=== PATIENT | male | born 1950 | race Caucasian/White ===

== ENCOUNTER 2020-08-23 09:15 | Outpatient (CLI) | payer MEDICARE, SELFPAY | END 2020-08-23 09:16 | disposition home or self-care (01) | LOC: ANHCOVIDVC 09:15 | PROVIDERS: PCP Family Medicine | DX: Z23 Encounter for immunization (principal) | CPT/HCPCS: 0001A; 91300 ==

== ENCOUNTER 2020-09-13 09:15 | Outpatient (CLI) | payer MEDICARE, SELFPAY | END 2020-09-13 09:16 | disposition home or self-care (01) | LOC: ANHCOVIDVC 09:15 | PROVIDERS: PCP Family Medicine | DX: Z23 Encounter for immunization (principal) | CPT/HCPCS: 0002A; 91300 ==